=== PATIENT | female | born 1970 | race African-American/Black ===

== ENCOUNTER 2022-05-26 03:36 | Inpatient (IN) | payer MEDICAID, OTHER ==
[~2022-05-26] VITALS: Ht 177.8 cm; Wt 107.5 kg
--- NOTE | 2022-05-26 03:40 | NUR ---
BIBS FOR C/O PALPITATION SINCE 99. + CHEST TIGHTNESS. HX WPW SYNDROME. PT A/OX4. TOLERATING R/A WELL WITH NO SOB. SAFETY MEASURES IN PLACE.
[2022-05-26] MEDS ORDERED: DILTIAZEM HCL 25 MG IV ONE (03:56)
[2022-05-26] MEDS ORDERED: DILTIAZEM HCL IV 125 MG in IV NS 0.9% 100 ML IV PRN ×2 (04:00→06:00)
[2022-05-26] MEDS ORDERED: DILTIAZEM HCL 50 MG IV IV ONE (04:00)
--- NOTE | 2022-05-26 04:02 | NUR ---
LAC #20G S/L BLOOD AND COVID ANTIGEN SWAB COLLECTED AND SENT TO LAB
--- NOTE | 2022-05-26 04:05 | NUR ---
URINE COLLECTED AND SENT TO LAB
--- NOTE | 2022-05-26 04:22 | NUR ---
[facility] [employer] AT PT'S BEDSIDE
[2022-05-26] MEDS ORDERED: DILTIAZEM HCL 50 MG IV ONE (04:43)
[2022-05-26 04:45] LABS: BASOPHILS # (AUTO) 0.1 K/uL (0.0-0.2); BASOPHILS % (AUTO) 0.6 % (0.0-2.0); EOSINOPHILS % (AUTO) 1.6 % (0.0-6.0); HEMATOCRIT 27 % (33-45); HEMOGLOBIN 8.3 g/dL (11.5-14.8); LYMPHOCYTES # (AUTO) 1.7 K/uL (0.8-4.8); LYMPHOCYTES % (AUTO) 18.1 % (20.0-44.0); MEAN CORPUSCULAR HGB CONC 31 g/dl (31.0-36.0); MEAN CORPUSCULAR VOLUME 70 fL (82-100); MONOCYTES # (AUTO) 0.3 K/uL (0.1-1.30); MONOCYTES % (AUTO) 3.6 % (2.0-12.0); NEUTROPHILS # (AUTO) 7.2 K/uL (1.8-8.9); NEUTROPHILS % (AUTO) 76.1 % (43.0-81.0); PLATELET COUNT (AUTO) 634 K/uL (150-450); RED BLOOD CELL COUNT(AUTO) 3.88 MIL/uL (4.0-5.2); WHITE BLOOD COUNT (AUTO) 9.5 K/uL (4.3-11.0)
--- NOTE | 2022-05-26 04:50 | NUR ---
INITIATED CARDIZEM DRIP @ 5MG/HR TO LAC #20G S/L HR AFIB 155; WILL CONTINUE TO MONITOR.
[2022-05-26 04:58] LABS: CALCIUM, SERUM 8.9 mg/dL (8.5-10.1); CARBON DIOXIDE 27 mmol/L (21-32); CHLORIDE 106 mmol/L (98-107); CREATININE 1.1 mg/dL (0.6-1.3); GLUCOSE 167 mg/dL (74-106); POTASSIUM 3.6 mmol/L (3.5-5.1); SODIUM SERUM 142 mmol/L (136-145); UREA NITROGEN, BLOOD 7 mg/dL (7-18)
[2022-05-26 05:04] LABS: ALANINE AMINOTRANSFERASE 25 U/L (12-78); ALBUMIN 3.2 g/dL (3.4-5.0); ALKALINE PHOSPHATASE 120 U/L (46-116); ASPARTATE AMINOTRANSFERASE 18 U/L (15-37); BILIRUBIN,DIRECT 0.1 mg/dL (0.0-0.2); BILIRUBIN,TOTAL 0.2 mg/dL (0.2-1.0); TOTAL PROTEIN, SERUM 7.4 g/dL (6.4-8.2)
--- NOTE | 2022-05-26 05:25 | NUR ---
INITIATED CARDIZEM DRIP @ 10MG/HR TO LAC #20G S/L HR AFIB 155; WILL CONTINUE TO MONITOR.
--- NOTE | 2022-05-26 05:40 | NUR ---
DR. JORGENSEN ON PHONE CALL WITH CAITLYN JOHNS NP
--- NOTE | 2022-05-26 05:48 | NUR ---
TITRATED CARDIZEM DRIP @ 15MG/HR TO LAC #20G S/L HR AFIB 135; WILL CONTINUE TO MONITOR.
[2022-05-26] MEDS ORDERED: MAG HYDROX/AL HYDROX/SIMETH 30 ML UDC PO PRN (06:00)
[2022-05-26] MEDS ORDERED: MAGNESIUM HYDROXIDE 30 ML UDC PO PRN (06:00)
[2022-05-26] MEDS ORDERED: ZOLPIDEM TARTRATE 5 MG TABLET PO PRN (06:00)
[2022-05-26] MEDS ORDERED: ONDANSETRON HCL/PF 4 MG/2 ML VIAL IVP PRN (06:00)
[2022-05-26] MEDS ORDERED: Z GUARD REMEDY 4 OZ OINT TP PRN (06:00)
[2022-05-26] MEDS ORDERED: ACETAMINOPHEN 325 MG TABLET PO PRN (06:00)
--- NOTE | 2022-05-26 06:03 | NUR ---
PRINT PRODUCER AT PT'S BEDSIDE FOR TROPNIN. NOT ABLE TO DRAW BLOOD, WILL TRY AGAIN LATER
[2022-05-26] MEDS ORDERED: ENOXAPARIN SODIUM 40 MG/0.4 ML DISP.SYRIN SQ SCH (07:11)
--- NOTE | 2022-05-26 08:17 | NUR ---
IV INFILTRATED, IV REMOVED PRESSURE APPLIED WITH 2X2 GUAZE. NEW IV ESTABLISHED L HAND 20G.
[2022-05-26] MEDS ORDERED: ENOXAPARIN SODIUM 40 MG/0.4 ML DISP.SYRIN SQ ONE (08:20)
--- NOTE | 2022-05-26 09:29 | NUR ---
BED GIVEN 103
[2022-05-26] MEDS ORDERED: AMIODARONE 150 MG in IV D5W 100 ML IV ONE (09:30)
[2022-05-26 09:45] LABS: MAGNESIUM 2.1 mg/dL (1.8-2.4); PHOSPHORUS 3.7 mg/dL (2.5-4.9)
[2022-05-26] MEDS ORDERED: AMIODARONE 450 MG in IV D5W 250 ML IV PRN (10:00)
[2022-05-26 10:01] LABS: THYROID STIMULATING HORMONE 1.958 uIU/mL (0.358-3.74)
--- NOTE | 2022-05-26 10:02 | NUR ---
REPORT GIVEN TO DEEPALI FOR ARSALAN
--- NOTE | 2022-05-26 10:09 | NUR ---
PT TRASNPORTED TO [facility] WITH ACLS PROTOCOL IN PLACE
--- NOTE | 2022-05-26 11:00 | NUR ---
RN NOTE AMIODARONE BOLUS FINISHED. BP STABLE AT 128/68, HR 110.
--- NOTE | 2022-05-26 11:25 | NUR ---
RN NOTE AMIODARONE DRIP INITATED AT 1120 AT 1MG/MIN PER PROTOCOL.
[2022-05-26] MEDS ORDERED: AMIODARONE 450 MG in IV D5W 241 ML IV PRN (11:30)
[2022-05-26 12:00] VITALS: BP 119/63
--- NOTE | 2022-05-26 12:50 | NUR ---
RN NOTE PT SINUS RHYTHM. DR. JIN NOTIFIED. ORDER RECEIVED TO D/C VANNA.
--- NOTE | 2022-05-26 13:00 | NUR ---
RN NOTE LEFT HAND IV INFILTRATED, PT HARD STICK, UNABLE TO ESTABLISH NEW IV. DR NOTIFIED.
[2022-05-26 16:00] VITALS: BP 136/75
--- NOTE | 2022-05-26 18:25 | NUR ---
RN NOTE PT REMAINS IN BED, ON RA, NO SIGNS OF LABORED BREATHING. PT SINUS RHYTHM ON MONITOR, NO IV LINE ACCESS AT THIS TIME, MD AWARE. BED LOCKED AND IN LOWEST POSITION, CALL LIGHT WITHIN REACH, 2 SIDE RAILS UP.
--- NOTE | 2022-05-26 19:10 | NUR ---
RN NOTES RECEIVED REPORT FROM DEEPALI YORK. PATIENT IN BED A/O X4 ABLE TO MAKE NEEDS KNOWN AMBULATORY. ON ROOM AIR SATING 95% NO SOB NO DISTRESS NO CHEST PAIN AND TIGHTNESS NOTED AT THIS TIME. PATIENT ON EXTERNAL MONITOR WITH SINUS RHYTHM. ALL SAFETY MEASURES IN PLACE AT ALL TIME. HOB ELEVATED. CALL LIGHT WITHIN REACH. WILL CLOSELY MONITOR THE PATIENT
[2022-05-26 20:00] VITALS: BP 141/69
[2022-05-27] VITALS: BP 137/63
[2022-05-27 04:00] VITALS: BP 133/70
--- NOTE | 2022-05-27 06:45 | NUR ---
RN NOTE PT REMAINS IN BED, ON RA, NO SIGNS OF LABORED BREATHING. PT SINUS RHYTHM ON MONITOR, NO SOB NO CHEST PAIN NO CHEST TIGHTNESS NOTED AT THIS TIME. NO IV LINE ACCESS OFFERED 3X PATIENT REFUSED STATED THAT SHE WANTS TO GO HOME TODAY, MD AWARE. BED LOCKED AND IN LOWEST POSITION, CALL LIGHT WITHIN REACH, 2 SIDE RAILS UP. WILL ENDORSED TO MORNING SHIFT FOR ARSALAN
--- NOTE | 2022-05-27 07:00 | NUR ---
RN OPENING NOTE RECEIVED PT IN BED, ON RA, NO SIGNS OF LABORED BREATHING. PT SINUS RHYTHM ON MONITOR, NO SOB NO CHEST PAIN NO CHEST TIGHTNESS NOTED AT THIS TIME. NO IV LINE ACCESS.BED LOCKED AND IN LOWEST POSITION, CALL LIGHT WITHIN REACH, 2 SIDE RAILS UP. WILL CONTINUE TO MONITOR THROUGHOUT SHIFT
[2022-05-27 07:12] LABS: BASOPHILS % (AUTO) 0.4 % (0.0-2.0); EOSINOPHILS % (AUTO) 2.2 % (0.0-6.0); HEMATOCRIT 27 % (33-45); HEMOGLOBIN 7.9 g/dL (11.5-14.8); LYMPHOCYTES # (AUTO) 2.2 K/uL (0.8-4.8); LYMPHOCYTES % (AUTO) 26.4 % (20.0-44.0); MEAN CORPUSCULAR HGB CONC 30 g/dl (31.0-36.0); MEAN CORPUSCULAR VOLUME 71 fL (82-100); MONOCYTES # (AUTO) 0.3 K/uL (0.1-1.30); MONOCYTES % (AUTO) 3.7 % (2.0-12.0); NEUTROPHILS # (AUTO) 5.6 K/uL (1.8-8.9); NEUTROPHILS % (AUTO) 67.3 % (43.0-81.0); PLATELET COUNT (AUTO) 586 K/uL (150-450); RED BLOOD CELL COUNT(AUTO) 3.77 MIL/uL (4.0-5.2); WHITE BLOOD COUNT (AUTO) 8.4 K/uL (4.3-11.0)
[2022-05-27 07:50] LABS: ALBUMIN 2.9 g/dL (3.4-5.0); BILIRUBIN,TOTAL 0.2 mg/dL (0.2-1.0); CALCIUM, SERUM 8.3 mg/dL (8.5-10.1); MAGNESIUM 2.2 mg/dL (1.8-2.4); PHOSPHORUS 2.9 mg/dL (2.5-4.9); POTASSIUM 3.8 mmol/L (3.5-5.1)
[2022-05-27 08:00] VITALS: BP 136/76
--- NOTE | 2022-05-27 08:48 | NUR ---
RN NOTE PATIENT REFUSED IV INSERTION.
[2022-05-27] MEDS ORDERED: ENOXAPARIN SODIUM 40 MG/0.4 ML DISP.SYRIN SQ SCH (09:00)
[2022-05-27 10:40] LABS: BAND % (MANUAL) 6 % (0.0-5.0); BASOPHILS % (MANUAL) 0 % (0.0-2.0); EOSINOPHILS % (MANUAL) 2 % (0-4); LYMPHOCYTES % (MANUAL) 19 % (16-48); MONOCYTES % (MANUAL) 3 % (0-11.0); NEUTROPHILS % (MANUAL) 70 (42-76); REACTIVE LYMPHOCYTES 0 % (0-0)
--- NOTE | 2022-05-27 11:50 | NUR ---
RN NOTE PATIENT DISCHARGED HOME. A0X4 ON RA, NO SIGNS OF LABORED BREATHING. PT SINUS RHYTHM ON MONITOR, NO SOB NO CHEST PAIN NO CHEST TIGHTNESS. NO IV LINE ACCESS. CARDIAC MONITORED REMOVED. PATIENT BELONGINGS ACCOUNTED FOR. EXIT FOLDER GIVEN TO PATIENT. PATIENT LEFT IN STABLE CONDITION
== END 2022-05-27 11:50 | disposition home or self-care (01) | DRG 201 ==
LOC: ER 03:38 → TRANSITION 04:38 → TELE1 09:47 → TELE-TD 10:05 → TELE1 15:41
DX: I48.91 Unspecified atrial fibrillation (principal); D50.9 Iron deficiency anemia, unspecified; E66.9 Obesity, unspecified; E11.9 Type 2 diabetes mellitus without complications; F10.90 Alcohol use, unspecified, uncomplicated; Z20.822 Contact with and (suspected) exposure to COVID-19; Z68.34 Body mass index [BMI] 34.0-34.9, adult; Z72.89 Other problems related to lifestyle; Z87.898 Personal history of other specified conditions
CPT/HCPCS: 36415; 71045-TC; 80048-TC; 80053-TC; 80061-TC; 80076-TC; 82728-TC; 83540-TC; 83735-TC; 84100-TC; 84439-TC; 84443-TC; 84484-TC; 85025-TC; 85730-TC; 93307-TC; G0378; J0282; J1650; J3490; J7030; J7060